=== PATIENT | female | born 2000 | race Two or more races ===

== ENCOUNTER 2024-08-13 14:26 | Outpatient (CLI) | payer OTHER | END 2024-08-13 14:27 | disposition home or self-care (01) | LOC: PRENATAL 14:26 | PROVIDERS: ATTEND Obstetrics & Gynecology Maternal & Fetal Medicine | DX: O44.00 Complete placenta previa NOS or without hemorrhage, unspecified trimester (principal); Z3A.26 26 weeks gestation of pregnancy ==

== ENCOUNTER → 2024-10-09 11:43 | Outpatient (CLI) | payer OTHER | END | disposition home or self-care (01) | LOC: PRENATAL 11:43 | PROVIDERS: ATTEND Obstetrics & Gynecology Maternal & Fetal Medicine | DX: O44.00 Complete placenta previa NOS or without hemorrhage, unspecified trimester (principal); Z3A.34 34 weeks gestation of pregnancy ==